=== PATIENT | male | born 1980 | race Caucasian/White ===

== ENCOUNTER 2018-09-23 09:24 | Emergency (ER) | payer SELFPAY ==
[2018-09-23 09:28] VITALS: BP 144/96; PULSE 83; RESP 18; TEMP 36.7; O2SAT 98; BMI 26.6
[2018-09-23] MEDS: PROPARACAINE 0.5% OPHTH SOL 1 DROPS EYE-BOTH (09:42)
--- NOTE | 2018-09-23 10:05 | ED_ITS ---
HPI - Eye Problem General Chief complaint: Eye Problems Stated complaint: Medal in both eyes Time Seen by Provider: 09/23/18 09:25 Source: patient Mode of arrival: ambulatory Limitations: no limitations History of Present Illness HPI Narrative: 38-year-old male former smoker, otherwise healthy presents to the emergency department for evaluation of left eye foreign body sensation since Wednesday. He frequently has foreign bodies in his eye as a consequence of his work and this happened at work on Wednesday. 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 His tetanus is current. He denies any other symptoms. He has a for eign body sensation, watering of the eye and can see a small metallic fragment. chief complaint: eye pain and eye redness Onset (ago): day(s) Onset description: sudden Duration: constant Location: left eye Eye Symptoms: burning and redness Place: work Mechanism: occurred while hammering/grinding Severity: mild If Pain, Quality: aching and throbbing Associated symptoms: none Treatments Prior to Arrival: none Related Data Patient tetanus UTD: Yes Previous Rx's Medication Instructions Recorded sulfacetamide sodium 1 drop EYE-BOTH Q2H 7 Days #15 ml 09/23/18 Allergies Allergy/AdvReac Type Severity Reaction Status Date / Time No Known Drug Allergies Allergy Verified 09/23/18 09:34 Review of Systems Constitutional Denies chills, Denies fever(s), Denies lethargy and Denies weakness Eyes Denies change in vision, Denies eye discharge, Reports irritation and Denies loss of vision ENT Ears, Nose, Mouth, and Throat: Denies change in voice, Denies neck pain and Denies sore throat Cardiovascular Denies chest pain, Denies irregular heart rhythm, Denies lightheadedness, Denies palpitations, Denies dyspnea, Denies dyspnea on exertion and Denies orthopnea Respiratory Denies cough, Denies dyspnea, Denies dyspnea on exertion and Denies wheezing Gastrointestinal Gastrointestinal: Denies abdominal pain, Denies change in bowel habits, Denies diarrhea, Denies nausea and Denies vomiting Genitourinary Denies hematuria, Denies flank pain, Denies urinary incontinence and Denies urinary urgency Musculoskeletal Denies neck pain Integumentary/Breasts Denies pruritus, Denies erythema, Denies rash and Denies wounds Neurologic Denies confusion, Denies loss of vision and Denies weakness Psychiatric Denies anxiety, Denies confusion, Denies depression, Denies homicidal ideation and Denies suicidal ideation Endocrine Denies palpitations Hematologic/Lymphatic Denies easy bruising Allergic/Immunologic Denies wheezing PFSH Social History Smoking Status: Former smoker Social History Smoking Status: Former smoker Exam Narrative Exam Narrative: GEN: AOx3 and in mild distress EYES: Pupils are equal, round, and reactive to light and accommodation. Extraoccular muscles are intact bilaterally. scleral injection of left eye, obvious foreign body at the 8 o'clock position. Upper lid everted and no additional foreign bodies noted. small amount of fluorescein uptake under UV lamp at the location of the foreign body. This foreign bodies easily removed with a TB needle. Patient tolerated well. visual acuity noted in nursing notes CHEST: Lungs are clear to auscultation bilaterally and free of wheezes, rales, or rhonchi. Heart rate is regular rhythm, there are no murmurs, clicks, rubs, or gallops. There is no chest wall tenderness. ABD: Abdomen is soft and nontender. There is no guarding or rebound. Bowel sounds are normal in all 4 quadrants. There is no mass or organomegaly. EXT: Full painless ROM of all extremities with no loss of sensation or strength. SKIN: Warm, pink, and dry. No erythema or rash Initial Vital Signs Initial Vital Signs: Vital Signs Temperature 98.1 F 09/23/18 09:28 Pulse Rate 83 09/23/18 09:28 Respiratory Rate 18 09/23/18 09:28 Blood Pressure 144/96 H 09/23/18 09:28 Pulse Oximetry 98 09/23/18 09:28 Course Orders Ordered: Discontinued Medications Proparacaine HCl (Parcaine 0.5% Ophth [place]) 1 drops EYE-BOTH NOW ONE Stop: 09/23/18 09:41 Last Admin: 09/23/18 09:42 Dose: 2 drop Vital Signs - 8 hr 09/23/18 09:28 Temperature 98.1 F Pulse Rate 83 Respiratory Rate 18 Blood Pressure 144/96 H Pulse Oximetry 98 Discharge Plan Departure Patient Disposition: Home Clinical Impression: Corneal abrasion Qualifiers: Encounter type: initial encounter Laterality: left Qualified Code(s): S05.02XA - Injury of conjunctiva and corneal abrasion without foreign body, left eye, initial encounter Foreign body of external eye, left Qualifiers: Encounter type: initial encounter Qualified Code(s): T15.92XA - Foreign body on external eye, part unspecified, left eye, initial encounter Discharge Date/Time: 09/23/18 10:12 Interventions: ED Discharge Assessment Last Done: 09/23/18 10:11 Instructions: DI for Corneal Abrasion Activity Restrictions/Additional Instructions: *You have been diagnosed with [ left eye corneal abrasion, foreign body removal ] *What to do: *Take medications as directed *Follow up with your primary care provider in 2-3 days, call for an appointment. Let them know you were seen in the Emergency Department and that we ask that you be seen in follow up *Return to ER if you should have any new, worsening or concerning symptoms Prescriptions: New sulfacetamide sodium 10 % drops 1 drop EYE-BOTH Q2H 7 Days Qty: 15 RF: 0 Referrals: Jinny Conway MD [Physician] -
== END 2018-09-23 10:12 | disposition home or self-care (01) ==
PROVIDERS: Emergency Provider Emergency Medicine
DX: S05.02XA Injury of conjunctiva and corneal abrasion without foreign body, left eye, initial encounter (principal); T15.92XA Foreign body on external eye, part unspecified, left eye, initial encounter; Y99.0 Civilian activity done for income or pay
CPT/HCPCS: 99283

== ENCOUNTER → 2023-10-26 18:55 | Outpatient (CLI) | payer OTHER, SELFPAY ==
[2023-10-26 19:42] LABS: Influenza A - CEPHEID Flu A NEGATIVE (NEGATIVE); Influenza B - CEPHEID Flu B NEGATIVE (NEGATIVE); Respiratory Syncytial Virus Negative (Negative)
[2023-10-26 19:43] LABS: COVID-19 CEPHEID 4-PLEX PCR Negative (Negative)
== END ==
PROVIDERS: Visit Provider Physician Assistant Surgical
DX: J02.9 Acute pharyngitis, unspecified (principal); R05.1 Acute cough
CPT/HCPCS: 0241U; 87070